=== PATIENT | female | born 1955 | race Caucasian/White ===

== ENCOUNTER 2017-09-13 10:05 | Emergency (ER) | payer BC ==
[~2017-09-13] VITALS: Ht 154.9 cm; Wt 47.0 kg
[~2017-09-13 10:05] MED LIST: ASPI81TA82 PO; CALCCHW25 PO; FISHCAP; KETO10 PO; PERC10TA27 PO; PRED-1 PO; ZOCO40TA PO
[2017-09-13 10:08] VITALS: BP 186/78; PULSE 93; RESP 16; TEMP 98.2; O2SAT 99
[2017-09-13] MEDS ORDERED: TRAM50TA PO (10:20)
[2017-09-13] MEDS ORDERED: ZOCO40TA PO (10:20)
[2017-09-13] MEDS ORDERED: ASPI-516 CHEW (10:20)
[2017-09-13] MEDS ORDERED: OXYC1TAB36 (10:20)
[2017-09-13] MEDS ORDERED: oxyCODONE/ACETAMINOPHEN 5 MG/325 MG TAB PO ONE (10:45)
[2017-09-13] MEDS ORDERED: KETOROLAC TROMETHAMINE 60 MG/2 ML (IM) VIAL IM ONE (10:45)
--- NOTE | 2017-09-13 11:32 | RADRPT ---
EXAM DATE/TIME: 09/13/2017 10:58 [place] COMPARISON: No previous studies available for comparison. INDICATIONS : Low back pain. MEDICAL HISTORY : None. SURGICAL HISTORY : None. ENCOUNTER: Initial ACUITY: 1 day PAIN SCORE: 10/10 LOCATION: [facility]. FINDINGS: Two view examination was performed. There are five non-rib bearing vertebral bodies. The vertebral bodies are in normal alignment without evidence of subluxation or scoliosis. The disc spaces are dann ntained. The pedicles are intact. Bony mineralization is normal. No fracture is identified. CONCLUSION: Negative for acute process. Do not see an etiology for the pain. Vasiliy Campuzano MD FACR on September 13, 2017 at 11:29 Board Certified Radiologist. This report was verified electronically.
[2017-09-13] MEDS ORDERED: PERC5TAB12 PO ×2 (11:41→11:51)
--- NOTE | 2017-09-13 11:41 | PD ---
HPI Chief Complaint: Back/ Neck Pain or Injury Time Seen by Provider: 10:20 Travel History International Travel<30 days: No Contact w/Intl Traveler<30days: No Traveled to known affect area: No History of Present Illness HPI 62-year-old female arrives complaining of low back pain primarily in the lower right side. It radiates down the right leg. It has become markedly worse over the past couple days. She cannot drive. She has also had a 6 cm ovarian cyst and is scheduled to undergo cystectomy in about 2 weeks. No fever. No incontinence of urine or stool or change in bowel bladder habits. No weakness on either side. No falls. No recent trauma. The patient is a history of herniated disc. No history of chronic steroids or diabetes. History of malignancy. PFSH Past Medical History Hx Anticoagulant Therapy: Yes (ASPIRIN) Autoimmune Disease: No Cancer: No Cardiovascular Problems: Yes (aortic valve insuffiency) High Cholesterol: Yes Chemotherapy: No Diabetes: No Diminished Hearing: No Endocrine: No Genitourinary: No Immune Disorder: No Musculoskeletal: No Neurologic: No Psychiatric: No Reproductive: No Respiratory: No Radiation Therapy: No Sickle Cell Disease: No ?: Not Menopausal: Yes Ovarian Cysts: Yes (SURGERY IS SCHEDUALED ON September) Past Surgical History Abdominal Surgery: Yes (APPENDECTOMY 3 YEARS AGO ) Appendectomy: Yes Pacemaker: No Tonsillectomy: Yes Social History Alcohol Use: Yes (social) Tobacco Use: No (quit 30 mins ago) Substance Use: No Allergies-Medications (Allergen,Severity, Reaction): Coded Allergies: No Known Allergies (Unverified Adverse Reaction, Unknown, 09/13/17) Reported Meds & Prescriptions Reported Meds & Active Scripts Active Percocet (Oxycodone-Acetaminophen) 5-325 mg Tab 1-2 Tab PO Q6H PRN Reported Oxycodone-Acetaminophen 10-325 (Oxycodone HCl/Acetaminophen) 10 Mg-325 Mg Tablet Aspirin 81 Mg Chew 81 Mg CHEW DAILY Zocor (Simvastatin) 40 Mg Tab 40 Mg PO DAILY Tramadol (Tramadol HCl) 50 Mg Tab 50 Mg PO HS PRN Review of Systems General / Constitutional: No: Fever Physical Exam Narrative GENERAL: 62-year-old female pleasant well-nourished well-developed SKIN: Warm and dry. HEAD: Atraumatic. Normocephalic. EYES: Pupils equal and round. No scleral icterus. No injection or drainage. ENT: No nasal bleeding or discharge. Mucous membranes pink and moist. NECK: Trachea midline. No JVD. CARDIOVASCULAR: Regular rate and rhythm. RESPIRATORY: No accessory muscle use. Clear to auscultation. Breath sounds equal bilaterally. GASTROINTESTINAL: Abdomen soft, non-tender, nondistended. Hepatic and splenic margins not palpable. MUSCULOSKELETAL: Extremities without clubbing, cyanosis, or edema. No obvious deformities. There is no focal spinal tenderness. There is minimal tenderness in the right lower back. NEUROLOGICAL: Awake and alert. No obvious cranial nerve deficits. Motor grossly within normal limits. Five out of 5 muscle strength in the arms and legs. Normal speech. No ankle clonus. 2+ patellar tendon reflexes bilaterally. Data Data Last Documented VS Vital Signs Date Time Temp Pulse Resp B/P (MAP) Pulse Ox O2 Delivery O2 Flow Rate FiO2 09/13/17 10:08 98.2 93 16 186/78 ([phone] Vital signs reviewed Orders Orders Oxycodone-Acetamin 5-325 Mg (Percocet (09/13/17 10:45) Ketorolac Inj (Toradol Inj) (09/13/17 10:45) Spine, Lumbar - Ltd (Ap & Lat) (09/13/17 ) Ed Discharge Order (09/13/17 11:41) [facility] Medical Decision Making Medical Screen Exam Complete: Yes Emergency Medical Condition: Yes Medical Record Reviewed: Yes Differential Diagnosis Chronic back pain, herniated disc, epidural abscess, paraspinal hematoma, vertebral body fractures, metastatic disease Narrative Course Lumbar spine x-ray reveals no acute injury We'll focus on pain control for now Patient agreeable with plan Diagnosis Primary Impression: Low back pain Qualified Codes: M54.41 - Lumbago with sciatica, right side; G89.29 - Other chronic pain Referrals: Primary Care Physician call for appointment Med/Other Pt SpecificInfo: Prescription(s) given Scripts Oxycodone-Acetaminophen (Percocet) 5-325 mg Tab 1-2 TAB PO Q6H Y for PAIN SCALE 6 TO 10, #20 TAB 0 Refills Prov: Skip Ortega MD 09/13/17 Disposition: 01 DISCHARGE HOME Condition: Stable Skip Ortega MD Sep 13, 2017 11:41
== END 2017-09-13 12:25 | disposition home or self-care (01) ==
LOC: NEPE 10:05
DX: M54.41 Lumbago with sciatica, right side (principal); G89.29 Other chronic pain; E78.00 Pure hypercholesterolemia, unspecified; N83.209 Unspecified ovarian cyst, unspecified side
CPT/HCPCS: 72100; 96372; 99284; J1885

== ENCOUNTER → 2017-09-24 | Outpatient (CLI) | payer BC ==
[~2017-09-24] MED LIST changes: +ASPI-516 CHEW; -ASPI81TA82 PO; -CALCCHW25 PO; -FISHCAP; -KETO10 PO; +OXYC1TAB36; -PERC10TA27 PO; +PERC5TAB12 PO; -PRED-1 PO; +TRAM50TA PO
--- NOTE | 2017-09-25 12:46 | EKG ---
Date Performed: 09/24/2017 Time Performed: 12:45:58 PTAGE: 62 years EKG: Sinus rhythm rSr'(V1) - probable normal variant Normal ECG PREVIOUS TRACING : 02/05/2013 09.21 DOCTOR: Andrew Arreola Interpretating Date/Time 09/25/2017 12:44:18
== END ==
LOC: CPRE 12:17
PROVIDERS: ATTEND Obstetrics & Gynecology
DX: Z01.810 Encounter for preprocedural cardiovascular examination (principal); D39.10 Neoplasm of uncertain behavior of unspecified ovary; R10.2 Pelvic and perineal pain
CPT/HCPCS: 93005

== ENCOUNTER 2017-09-26 15:05 | Observation (INO) | payer BC ==
--- NOTE | 2017-09-25 21:33 | MH ---
cc: ARTIS HENRIQUEZ DATE OF ADMISSION 09/26/2017 ADMISSION DIAGNOSIS Pelvic pain with ovarian cyst. HISTORY OF PRESENT ILLNESS The patient is a 62-year-old single white female para 0 was having evaluation for diarrhea including colonoscopy in July of 2017. A CT scan of the pelvis and abdomen showed a 5.9 cystic mass involving the pelvis appear to be ovarian in origin. A pelvic ultrasound on 09/06/2017 showed simple cyst involving the left ovary. The right ovary appeared normal. The uterus appeared normal. The patient's Pap smear on 08/30/2017 was normal and her OVA-1 testing from 09/04/2017 was low risk. In view of the intermittent pain in that region she is now admitted for surgical evaluation. PAST MEDICAL HISTORY 1. Previous surgery, tonsillectomy and adenoidectomy at age 1. 2. She had a colonoscopy in July that was normal. MEDICATIONS None. ALLERGIES None. SMI history of colitis. Had colonoscopy times three since 2012. TRANSFUSIONS None OBSTETRICAL HISTORY None. SOCIAL HISTORY She works for [employer]. She is single. . Alcohol occasional. Tobacco quit age 29. Drugs none. FAMILY HISTORY Noncontributory. PHYSICAL EXAMINATION GENERAL: This is a well-nourished, well-developed white female. VITAL SIGNS: Stable. HEENT: Exam is normal. CHEST: Clear. CARDIOVASCULAR: Regular rate. BREASTS: The breasts are symmetrical. ABDOMEN: Benign. PELVIC: Vagina is normal and atrophic. Cervix small. Uterus normal size, shape. The left adnexa is cystic and mobile. ASSESSMENT As above. PLAN She is now admitted for laparoscopy, probable LASH BSO, possible MANNIE-BSO. I explained that this probably benign but will likely eliminate some of her pain but perhaps not all. She could require additional therapy if final pathology showed a malignancy. She would like to proceed. MD OLVIN Doherty/MADELYN /8:45 PM /9:03 PM [facility]
[~2017-09-26] VITALS: Ht 154.9 cm; Wt 48.7 kg
[~2017-09-26 15:05] MED LIST changes: +DEXAMETHASONE SOD PHOS 4 MG/ML VIAL IV ONE; +KETOROLAC TROMETHAMINE 30 MG/ML (IVP) VIAL IV PUSH ONE; +LIDOCAINE HCL 1% PF 5 ML SYRINGE OTHER ONE; +NEOSTIGMINE 5 MG/5 ML SYRINGE IV PUSH ONE; +NORMOSOL R INJ 1,000 ML IV ONE; +ONDANSETRON HCL 4 MG/2 ML VIAL IV PUSH ONE; -OXYC1TAB36; +PHENYLEPH/NS 1000 MCG/10 ML SYR IV ONE; +PROPOFOL 200 MG/20 ML AMP IV ONE; +ROCURONIUM INJ 50 MG/5 ML SYRINGE IV PUSH ONE; -TRAM50TA PO
[2017-09-26] MEDS ORDERED: CHLORHEXIDINE GLUCONATE 2 % 1 PACK (2 CLOTHS) TOPICAL PRN (15:30)
[2017-09-26] MEDS ORDERED: POVIDONE IODINE 5% (ANTISEPSIS KIT) 4 APPLICATIONS EACH NARE PRN (15:30)
[2017-09-26] MEDS ORDERED: SODIUM CHLORID 0.9% 500 ML IV PRN (15:30)
[2017-09-26] MEDS ORDERED: ACETAMINOPHEN 1000 MG/100 ML 100 ML IV SCH (15:30)
[2017-09-26] MEDS ORDERED: LACTATED RINGER'S 1000 ML IV PRN (15:30)
[2017-09-26] MEDS ORDERED: ceFAZolin 1,000 MG/NS 100 ML IV SCH ×2 (15:30)
[2017-09-26] MEDS ORDERED: METOPROLOL TARTRATE 25 MG TAB PO PRN (15:30)
[2017-09-26] MEDS ORDERED: BUPIVACAINE HCL PF 0.25% 30 ML VIAL ONE (16:00)
[2017-09-26] MEDS ORDERED: EPINEPHrine HCL PF/SF (1:1000) 1 MG/ML AMP I-OCULAR ONE (16:00)
[2017-09-26] MEDS ORDERED: DEXAMETHASONE SOD PHOS PF 10 MG/ML VIAL ONE (16:00)
[2017-09-26] MEDS ORDERED: DEXMEDETOMIDINE HCL 200 MCG/2 ML VIAL ONE (16:00)
[2017-09-26] MEDS ORDERED: diphenhydrAMINE HCL 25 MG CAP PO PRN (18:30)
[2017-09-26] MEDS ORDERED: PROMETHAZINE INJ 25 MG/ML VIAL IM PRN (18:30)
[2017-09-26] MEDS ORDERED: ONDANSETRON HCL 4 MG/2 ML VIAL IV PUSH PRN (18:30)
[2017-09-26] MEDS ORDERED: ZOLPIDEM TARTRATE 5 MG TAB PO PRN (18:30)
[2017-09-26] MEDS ORDERED: SUGAMMADEX SODIUM 200 MG/2 ML VIAL IV PUSH ONE (18:42)
[2017-09-26] MEDS ORDERED: DO NOT ADM ANY ANTICOAGULANT DRUGS PRN (18:45)
[2017-09-26] MEDS ORDERED: MIDAZOLAM HCL 2 MG/2 ML VIAL ONE (18:58)
[2017-09-26] MEDS: D5-1/2 NS + KCL 20 MEQ INJ 1,000 ML IV SCH (19:00)
[2017-09-26] MEDS ORDERED: *morphine SULFATE 10 MG/ML PERIprocedure ONLY ONE (19:23)
[2017-09-26] MEDS: KETOROLAC TROMETHAMINE 30 MG/ML (IVP) VIAL IVP SCH (20:00)
[2017-09-26 20:20] VITALS: BP 90/43; PULSE 66; RESP 16; TEMP 97.4; O2SAT 97
[2017-09-26] MEDS: DOCUSATE SODIUM 100 MG CAP PO SCH (21:23)
[2017-09-26 22:36] LABS: HEMATOCRIT 33.8 % (35.0-46.0); HEMOGLOBIN 11.1 GM/DL (11.6-15.3)
[2017-09-26] MEDS: ACETAMINOPHEN 1000 MG/100 ML VIAL IV SCH (23:36)
[2017-09-27 01:30] VITALS: BP 87/48; PULSE 74; RESP 18; TEMP 98.3
[2017-09-27 03:09] VITALS: BP 85/43; O2SAT 96
[2017-09-27] MEDS: KETOROLAC TROMETHAMINE 30 MG/ML (IVP) VIAL IVP SCH ×2 (03:14→09:28)
[2017-09-27] MEDS: D5-1/2 NS + KCL 20 MEQ INJ 1,000 ML IV SCH (03:14)
[2017-09-27 05:31] VITALS: BP 94/50; PULSE 82; RESP 18; TEMP 98.4; O2SAT 96
[2017-09-27 05:49] LABS: AUTOMATED NEUTROPHIL # 4.3 TH/MM3 (1.8-7.7); HEMATOCRIT 34.2 % (35.0-46.0); HEMOGLOBIN 11.4 GM/DL (11.6-15.3); LYMPH % 12.9 % (9.0-44.0); LYMPHOCYTE # 0.7 TH/MM3 (1.0-4.8); MEAN CELL VOLUME 89.1 FL (80.0-100.0); MEAN CORPUSCULAR HEMOGLOBIN 29.8 PG (27.0-34.0); MEAN CORPUSCULAR HGB CONC 33.4 % (32.0-36.0); MEAN PLATELET VOLUME 7.6 FL (7.0-11.0); MONO % 3.4 % (0.0-8.0); MONOCYTE # 0.2 TH/MM3 (0-0.9); NEUT % 83.7 % (16.0-70.0); PLATELET COUNT 227 TH/MM3 (150-450); RED BLOOD COUNT 3.84 MIL/MM3 (4.00-5.30); RED CELL DISTRIBUTION WIDTH 13.5 % (11.6-17.2); WHITE BLOOD COUNT 5.2 TH/MM3 (4.0-11.0)
[2017-09-27] MEDS: ACETAMINOPHEN 1000 MG/100 ML VIAL IV SCH (06:14)
--- NOTE | 2017-09-27 06:29 | MP ---
cc: MARTINEZARTIS DATE OF SURGERY 09/26/2017 PREOPERATIVE DIAGNOSES Pelvic pain. Left ovarian cyst. POSTOPERATIVE DIAGNOSES Pelvic pain. Left ovarian cyst with partial torsion. PROCEDURE Laparoscopy with a LASH-BSO. ANESTHESIA General ET. SURGEON Artis Son MD EXTENSION WORKER Vini. ESTIMATED BLOOD LOSS About 25 cc. FLUIDS 1 liter crystalloid. OBJECTIVE FINDINGS Following the induction of adequate general endotracheal anesthesia, the patient was prepped and draped supine on the operating room table in the dorsal lithotomy position in the usual sterile fashion with the bladder being drained via Perales catheterization. The abdomen was opened through a 3-cm curving infraumbilical incision using a knife to cut down through the skin to the fascia. The fascia was opened transversely, the muscle split in the midline and the peritoneum opened sharply without incident. Digital palpation was normal. A GelPort was placed, the laparoscope inserted, a 5-port placed in the left lower quadrant and airseal- port in the right lower quadrant. Findings revealed a 6-cm partially torsing left ovarian cystic mass that had no signs of malignancy. There were no surface excrescences. The right ovary was normal. The uterus was normal. Inspection of the pelvis and abdomen was normal. Working first on the left, harmonic scalpel was used to take the left ovarian vessels, the left round ligament, left broad ligament and the left tube. This was extracted intact to the pouch. Prior to that we collected washings for permanent studies. The harmonic scalpel was now used to take the right ovarian vessels, right round ligament, right broad ligament, right side of the bladder flap and the right uterine vessels. On the left the harmonic scalpel was used to take the left uterine vessels. The harmonic scalpel was now used to amputate the fundus from the cervix. A second pouch was inserted to extract the uterus, right tube and ovary intact. Irrigation was now performed. No bleeding was evident. Low-pressure test was done and there was no bleeding. The ureters were inspected with good peristalsis. The operative site was now coated with Evicel, the GelPort was removed, the peritoneum sutured with a running 2-0 Vicryl, the fascia with a running locking stitch of 0 Vicryl from each corner to the midline and tied; the subcu with running 3-0 Vicryl and the skin with a running subcuticular 3-0 Monocryl. The scope was now reinserted through the lower port site and used to inspect the upper port site which was well closed, with no entrapment. The pelvis was inspected; there was no bleeding. The scope was removed, the gas allowed to escape, the ports removed and sutured with 3-0 Monocryl interrupted. Dermabond was applied. All counts correct and the patient was awakened and taken to the recovery room in good condition. MD OLVIN Doherty/ALEAH /6:08 PM /5:49 AM [facility]ristian
[2017-09-27 06:30] LABS: BICARBONATE 26.2 MEQ/L (21.0-32.0); CALCIUM 8.2 MG/DL (8.5-10.1); CREATININE 0.63 MG/DL (0.50-1.00)
[2017-09-27 08:00] VITALS: BP 106/45; PULSE 77; RESP 16; TEMP 98.1; O2SAT 96
[2017-09-27] MEDS: DOCUSATE SODIUM 100 MG CAP PO SCH (09:29)
[2017-09-27 12:09] VITALS: BP 110/60; PULSE 86; RESP 18; TEMP 97.9; O2SAT 95
== END 2017-09-27 14:58 | disposition home or self-care (01) ==
LOC: HSDC 15:05 → HSDI 18:19 → H1EA 20:11
PROVIDERS: ADMIT Obstetrics & Gynecology; ATTEND Obstetrics & Gynecology
DX: D27.1 Benign neoplasm of left ovary (principal); D25.9 Leiomyoma of uterus, unspecified; E78.00 Pure hypercholesterolemia, unspecified; Z79.82 Long term (current) use of aspirin; Z87.891 Personal history of nicotine dependence
CPT/HCPCS: 00840; 58542; 76937; 80048; 85014; 85018; 85025; 88112; 88307; 94150; 96361; 96374; 96375; 96376; G0378; J0131; J0171; J1100; J1885; J2250; J2270; J2370; J2405; J2710; J3010; J3480; J7120